=== PATIENT | female | born 1940 | race Caucasian/White ===

== ENCOUNTER 2017-04-26 08:37 | Emergency (ER) | payer MEDICARE, MEDICAID ==
[~2017-04-26] VITALS: Ht 165.1 cm; Wt 45.9 kg
[~2017-04-26 08:37] MED LIST: LISI-170 PO
[2017-04-26] MEDS ORDERED: METHOCARBAMOL 750 MG TABLET ONE (09:09)
[2017-04-26] MEDS ORDERED: METHOCARBAMOL 750 MG TABLET PO ONE (09:30)
[2017-04-26 10:28] VITALS: BP 102/57
== END 2017-04-26 10:30 | disposition home or self-care (01) ==
LOC: ED 09:11
DX: S16.1XXA Strain of muscle, fascia and tendon at neck level, initial encounter (principal); M54.6 Pain in thoracic spine; I10 Essential (primary) hypertension; X50.1XXA Overexertion from prolonged static or awkward postures, initial encounter; Y93.89 Activity, other specified; Y92.89 Other specified places as the place of occurrence of the external cause; Y99.8 Other external cause status
CPT/HCPCS: 72050; 72072; 99284

== ENCOUNTER → 2017-05-31 | Outpatient (CLI) | payer MEDICARE, MEDICAID | END | disposition home or self-care (01) | LOC: CFH 13:19 | PROVIDERS: ATTEND Internal Medicine | DX: I08.3 Combined rheumatic disorders of mitral, aortic and tricuspid valves (principal); I10 Essential (primary) hypertension | CPT/HCPCS: 93306 ==

== ENCOUNTER 2017-07-18 08:58 | Day surgery (SDC) | payer MEDICARE, MEDICAID ==
[~2017-07-18] VITALS: Ht 165.1 cm; Wt 48.2 kg
[2017-07-18] MEDS ORDERED: LACTATED RINGERS 1,000 ML IV SCH (09:50)
[2017-07-18 10:10] VITALS: BP 200/96
[2017-07-18 11:03] LABS: ALBUMIN 3.6 g/dL (3.4-5.0); ANION GAP 5 mmol/L (5-15); CALCIUM 8.6 mg/dL (8.5-10.1); CHLORIDE 107 mmol/L (98-107)
[2017-07-18 11:06] LABS: ALANINE AMINOTRANSFERASE 20 U/L (12-78); ALKALINE PHOSPHATASE 94 U/L (45-117); BILIRUBIN,TOTAL 0.6 mg/dL (0.2-1.0); CREATININE 0.82 mg/dL (0.55-1.02); TOTAL PROTEIN 7.4 g/dL (6.4-8.2)
[2017-07-18] MEDS ORDERED: NEOSTIGMINE 1 MG/ML, 10ML ONE (12:21)
[2017-07-18] MEDS ORDERED: SUCCINYLCHOLINE 20 MG/ML, 10ML ONE (12:21)
[2017-07-18] MEDS ORDERED: CEFAZOLIN 1,000 MG ONE (12:21)
[2017-07-18] MEDS ORDERED: ONDANSETRON 2MG/ML, 2ML ONE (12:21)
[2017-07-18] MEDS ORDERED: PROPOFOL 10 MG/ML, 20ML ONE (12:21)
[2017-07-18] MEDS ORDERED: GLYCOPYRROLATE 0.2MG/1ML, 5ML ONE (12:21)
[2017-07-18] MEDS ORDERED: ROCURONIUM 10 MG/ML,10ML ONE (12:21)
[2017-07-18] MEDS ORDERED: DEXAMETHASONE 4 MG/ML, 1ML ONE (12:21)
[2017-07-18] MEDS ORDERED: EPINEPHRINE 1 MG/ML, 1ML ONE (12:23)
[2017-07-18] MEDS ORDERED: BUPIVACAINE/PF 0.25% ONE (12:23)
[2017-07-18] MEDS ORDERED: NEOMY/POLYMYXIN B GU IRR. 1 ML IRRIG ONE (12:23)
[2017-07-18] MEDS ORDERED: FENTANYL PF 100 MCG/2ML ONE (13:01)
[2017-07-18] MEDS ORDERED: BUPIVACAINE/PF 0.25% INFIL ONE (13:12)
[2017-07-18] MEDS ORDERED: EPINEPHRINE 1 MG/ML, 1ML INFIL ONE (13:13)
[2017-07-18] MEDS ORDERED: FENTANYL PF 100 MCG/2ML IV PRN (13:30)
[2017-07-18] MEDS ORDERED: morphine SULFATE 10 MG/ML, 1ML IV PRN (13:30)
[2017-07-18] MEDS ORDERED: ACETAMINOPHEN 325 MG TABLET PO PRN (13:30)
[2017-07-18] MEDS ORDERED: ACETAMINOPHEN 650 MG/20.3 ML UDC ONE (13:43)
== END 2017-07-18 16:05 ==
LOC: OUT 08:58
PROVIDERS: ATTEND Obstetrics & Gynecology Female Pelvic Medicine and Reconstructive Surgery
DX: N39.46 Mixed incontinence (principal); N81.89 Other female genital prolapse; N81.5 Vaginal enterocele; I10 Essential (primary) hypertension; Z87.39 Personal history of other diseases of the musculoskeletal system and connective tissue; Z90.710 Acquired absence of both cervix and uterus; Z98.890 Other specified postprocedural states; Z90.722 Acquired absence of ovaries, bilateral
CPT/HCPCS: 36415; 57265; 57282; 57288; 80053; 93005; J0171; J0330; J0690; J1100; J2405; J2704; J2710; J3010; J3490; C1771

== ENCOUNTER → 2017-09-19 | Outpatient (CLI) | payer MEDICARE, MEDICAID ==
[~2017-09-19] MED LIST changes: +OMNIPAQUE 350 MG/ML, 100ML BOTTLE ONE
== END | disposition home or self-care (01) ==
LOC: RAD 13:15
PROVIDERS: ATTEND Internal Medicine
DX: R07.9 Chest pain, unspecified (principal); R06.02 Shortness of breath
CPT/HCPCS: 71275; Q9967

== ENCOUNTER 2018-01-16 10:49 | Day surgery (SDC) | payer MEDICARE, MEDICAID ==
[~2018-01-16] VITALS: Ht 165.1 cm; Wt 47.4 kg
[~2018-01-16 10:49] MED LIST changes: +BACITRACIN 50,000 UNIT ONE; +BUPIVACAINE 0.25% ONE; +EPINEPHRINE 1 MG/ML, 1ML ONE; -OMNIPAQUE 350 MG/ML, 100ML BOTTLE ONE
[2018-01-16] MEDS ORDERED: LACTATED RINGERS 1,000 ML IV SCH (11:35)
[2018-01-16] MEDS ORDERED: GABAPENTIN 300 MG CAPSULE PO ONE (12:00)
[2018-01-16] MEDS ORDERED: ACETAMINOPHEN 500 MG TABLET PO ONE (12:00)
[2018-01-16 12:12] VITALS: BP 155/84
[2018-01-16] MEDS ORDERED: ESTR0.5T PO (12:12)
[2018-01-16 12:22] LABS: ALANINE AMINOTRANSFERASE 20 U/L (12-78); ALBUMIN 3.8 g/dL (3.4-5.0); ANION GAP 5 mmol/L (5-15); CALCIUM 9.3 mg/dL (8.5-10.1); CHLORIDE 109 mmol/L (98-107); CREATININE 0.84 mg/dL (0.55-1.02)
[2018-01-16 12:23] LABS: ALKALINE PHOSPHATASE 92 U/L (45-117); BILIRUBIN,TOTAL 0.5 mg/dL (0.2-1.0); TOTAL PROTEIN 7.7 g/dL (6.4-8.2)
[2018-01-16] MEDS ORDERED: FENTANYL PF 100 MCG/2ML ONE ×2 (13:45→16:18)
[2018-01-16] MEDS ORDERED: FENTANYL PF 100 MCG/2ML IV PRN (14:00)
[2018-01-16] MEDS ORDERED: OXYcodone 5 MG/5 ML ORAL.SOL UDC PO PRN (14:00)
[2018-01-16] MEDS ORDERED: HYDROmorphone 1 MG/ML, 1ML IV PRN (14:00)
[2018-01-16] MEDS ORDERED: ONDANSETRON 2MG/ML, 2ML IV PRN (14:00)
[2018-01-16] MEDS ORDERED: hydrALAzine 20 MG/ML, 1ML IV PRN (14:00)
[2018-01-16] MEDS ORDERED: DIPHENHYDRAMINE 50 MG/ML, 1ML IVPush PRN (14:00)
[2018-01-16] MEDS ORDERED: LABETALOL 5MG/ML, 20ML IV PRN (14:00)
[2018-01-16] MEDS ORDERED: NEOMY/POLYMYXIN B GU IRR. 1 ML IRRIG ONE (14:01)
[2018-01-16] MEDS ORDERED: KETOROLAC 30 MG/1 ML ONE (15:04)
[2018-01-16] MEDS ORDERED: CEFAZOLIN 1,000 MG ONE ×2 (15:04→15:34)
[2018-01-16] MEDS ORDERED: PHENYLEPHRINE 10 MG/ML ONE (15:04)
[2018-01-16] MEDS ORDERED: ONDANSETRON 2MG/ML, 2ML ONE ×3 (15:04→16:42)
[2018-01-16] MEDS ORDERED: DEXAMETHASONE 4 MG/ML, 1ML ONE ×2 (15:04→15:34)
[2018-01-16] MEDS ORDERED: GLYCOPYRROLATE 0.2MG/1ML, 5ML ONE (15:04)
[2018-01-16] MEDS ORDERED: FUROSEMIDE 20 MG/2 ML ONE (15:32)
[2018-01-16] MEDS ORDERED: PROPOFOL 10 MG/ML, 20ML ONE (15:34)
[2018-01-16] MEDS ORDERED: OXYcodone 5 MG/5 ML ORAL.SOL UDC ONE (16:18)
== END 2018-01-16 18:20 | disposition home or self-care (01) ==
LOC: OUT 10:49
PROVIDERS: ATTEND Obstetrics & Gynecology Female Pelvic Medicine and Reconstructive Surgery
DX: N81.89 Other female genital prolapse (principal); N39.46 Mixed incontinence; Z98.890 Other specified postprocedural states; I10 Essential (primary) hypertension; Z79.899 Other long term (current) drug therapy; N13.70 Vesicoureteral-reflux, unspecified
CPT/HCPCS: 36415; 57265; 57282; 57288; 80053; 93005; C1781; J0171; J0690; J1100; J1200; J1885; J1940; J2370; J2405; J2704; J3010; J3490; J7120

== ENCOUNTER 2018-08-03 09:04 | Emergency (ER) | payer MEDICARE, MEDICAID ==
[~2018-08-03] VITALS: Ht 165.1 cm; Wt 54.5 kg
[~2018-08-03 09:04] MED LIST changes: -BACITRACIN 50,000 UNIT ONE; -BUPIVACAINE 0.25% ONE; -EPINEPHRINE 1 MG/ML, 1ML ONE; +ESTR0.5T PO
[2018-08-03] MEDS ORDERED: FAMOTIDINE 20 MG/2 ML ONE (09:16)
[2018-08-03] MEDS ORDERED: FAMOTIDINE 20 MG/2 ML IVPush ONE (09:30)
[2018-08-03 09:32] LABS: BASOPHILS # (AUTO) 0.05 x10^3/uL (0-0.1); BASOPHILS % (AUTO) 1 % (0-1); EOSINOPHILS # (AUTO) 0.53 x10^3/uL (0-0.4); EOSINOPHILS % (AUTO) 9 % (1-7); LYMPHOCYTES # (AUTO) 1.11 x10^3/uL (1-3.4); LYMPHOCYTES % (AUTO) 18 % (22-44); MD NO; MEAN CORPUSCULAR HEMOGLOBIN 31.2 pg (27.0-34.8); MEAN CORPUSCULAR HGB CONC 32.6 g/dL (32.4-35.8); MEAN CORPUSCULAR VOLUME 95.6 fL (80-100); MEAN PLATELET VOLUME 8.6 fL (7.4-10.4); MONOCYTES # (AUTO) 0.54 x10^3/uL (0.2-0.8); MONOCYTES % (AUTO) 9 % (2-9); NEUTROPHILS # (AUTO) 3.93 x10^3/uL (1.8-6.8); NEUTROPHILS % (AUTO) 64 % (42-75); PLATELET COUNT 246 x10^3/uL (130-400); RED BLOOD COUNT 4.73 x10^6/uL (3.82-5.3); RED CELL DISTRIBUTION WIDTH 13.4 % (9.6-15.2)
[2018-08-03 09:41] LABS: ALBUMIN 3.5 g/dL (3.4-5.0); ANION GAP 4 mmol/L (5-15); CHLORIDE 109 mmol/L (98-107); CREATININE 0.81 mg/dL (0.55-1.02)
[2018-08-03 11:20] VITALS: BP 148/84
== END 2018-08-03 11:22 | disposition home or self-care (01) ==
LOC: ED 10:08
DX: T78.3XXA Angioneurotic edema, initial encounter (principal); I10 Essential (primary) hypertension; X58.XXXA Exposure to other specified factors, initial encounter; Y93.89 Activity, other specified; Y92.89 Other specified places as the place of occurrence of the external cause; Y99.8 Other external cause status
CPT/HCPCS: 36415; 80048; 82040; 85025; 96374; 99283; J3490